=== PATIENT | male | born 1990 | race Caucasian/White ===

== ENCOUNTER 2017-05-15 10:47 | Emergency (ER) | payer OTHER ==
[~2017-05-15] VITALS: Ht 182.9 cm; Wt 89.0 kg
[2017-05-15 10:49] VITALS: Ht 182.9 cm; Wt 89.0 kg
[2017-05-15] MEDS ORDERED: morphine 4 MG/ML VIAL IV STA (10:54)
[2017-05-15] MEDS ORDERED: ONDANSETRON 4 MG INJ IV STA ×3 (10:54→13:45)
[2017-05-15] MEDS ORDERED: SOD CHLORIDE 0.9% 1,000 ML IV STA (10:54)
[2017-05-15 11:14] LABS: BASOPHIL # 0.1 10^3/ul (0.0-0.1); BASOPHILS % 0.9 % (0.0-2.0); EOSINOPHILS # 0.4 10^3/ul (0.0-0.5); EOSINOPHILS % 4.2 % (0.0-7.0); HEMATOCRIT 41.9 % (42.0-52.0); HEMOGLOBIN 15.2 g/dl (14.0-18.0); LYMPHOCYTES % 33.4 % (15.0-51.0); MEAN CORPUSCULAR HEMOGLOBIN 32.1 pg (29.0-33.0); MEAN CORPUSCULAR HGB CONC 36.3 g/dl (32.0-37.0); MEAN CORPUSCULAR VOLUME 88.6 fl (82.0-101.0); MEAN PLATELET VOLUME 9.5 fl (7.4-10.4); MONOCYTE # 0.7 10^3/ul (0.3-0.9); MONOCYTES % 7.3 % (0.0-11.0); NEUTROPHIL # 4.8 10^3/ul (1.6-7.5); PLATELET COUNT 299 10^3/UL (140-415); RED BLOOD COUNT 4.73 10^6/ul (4.70-6.10); RED CELL DISTRIBUTION WIDTH 12.3 % (11.5-14.5)
--- NOTE | 2017-05-15 11:19 | ERD ---
ER Documentation Chief Complaint Date/Time DATE: 05/15/17 TIME: 11:16 Chief Complaint AP TODAY HPI Patient is a 27-year-old male with past medical history of pancreatitis who presents to the emergency department for concerns of epigastric pain and vomiting which started earlier today. Patient states that he was at work when he started to have severe epigastric pain. Patient states that the pain is worse when lying down. Patient states he has had 3-4 episodes of clear watery vomit this morning. Patient denies any blood. Patient denies any fevers, chills. Patient also does admit to diarrhea. Patient states he did drink 2-3 beers with dinner last night. Patient denies any chest pain, shortness breath, left upper extremity pain or loss of consciousness. Patient states he was admitted to [facility] 2-3 months ago for pancreatitis. Patient states that he has had bouts of severe pain and seen GI specialists in the past for his abdominal pain. ROS All systems reviewed and are negative except as per history of present illness. Medications Home Meds Active Scripts Ondansetron (Ondansetron Odt) 4 Mg Tab.rapdis, 4 MG PO Q6H Y for NAUSEA AND/OR VOMITING, #15 TAB Prov:FEROZ VANCE-C 05/15/17 Hydrocodone/Acetaminophen (Drayton 5-325 Tablet) 1 Each Tablet, 1 TAB PO Q6H Y for PAIN, #7 TAB Prov:FEROZ VANCE-C 05/15/17 Ibuprofen* (Motrin*) 600 Mg Tab, 600 MG PO Q6, #20 TAB Prov:FEROZ VANCE PA-C 05/15/17 Ondansetron (Ondansetron Odt) 4 Mg Tab.rapdis, 4 MG PO Q6H Y for NAUSEA AND/OR VOMITING, #10 TAB Prov:FEROZ VANCE-C 05/15/17 PMhx/Soc Medical and Surgical Hx: pt denies Surgical Hx History of Surgery: No Anesthesia Reaction: No Hx Neurological Disorder: No Hx Respiratory Disorders: No Hx Cardiac Disorders: No Hx Psychiatric Problems: No Hx Miscellaneous Medical Probl: Yes (pancreatitis) Hx Alcohol Use: No Hx Substance Use: No Hx Tobacco Use: Yes Smoking Status: Current every day smoker Physical Exam Vitals Vital Signs Date Time Temp Pulse Resp B/P Pulse Ox O2 Delivery O2 Flow Rate FiO2 05/15/17 15:02 89 20 112/63 99 Room Air 05/15/17 14:11 97.6 56 20 148/89 98 Room Air 05/15/17 10:49 97.9 58 18 140/78 99 Physical Exam GENERAL: Ill-appearing male. Actively vomiting. HEAD: Normocephalic, atraumatic. EYES: Pupils are equally reactive bilaterally. EOMs grossly intact. No conjunctival erythema. ENT: Moist mucous membranes. No uvula deviation. No kissing tonsils. NECK: Supple. No meningismus. Normal range of motion of the neck. LUNG: Clear to auscultation bilaterally. No rhonchi, wheezing, rales or coarse breath sounds. HEART: Regular rate and rhythm. No murmurs, rubs or gallops. ABDOMEN: Soft and nondistended. + Tender to palpation in the epigastric region. Difficulty with laying supine. Positive bowel sounds in all four quadrants. No rebound tenderness, no guarding. (-) McBurney's point tenderness. No CVA tenderness. BACK: No midline tenderness. EXTREMITIES: Equal pulses bilaterally. No peripheral clubbing, cyanosis or edema. No unilateral leg swelling. NEUROLOGIC: Alert and oriented. Moving all four extremities without any difficulty. Normal speech. Steady gait. SKIN: Normal color. Warm and dry. No rashes or lesions. Result Diagram: 05/15/17 1107 05/15/17 1107 Results 24 hrs Laboratory Tests Test 05/15/17 11:07 White Blood Count 9.010^3/ul Red Blood Count 4.7310^6/ul Hemoglobin 15.2g/dl Hematocrit 41.9% Mean Corpuscular Volume 88.6fl Mean Corpuscular Hemoglobin 32.1pg Mean Corpuscular Hemoglobin Concent 36.3g/dl Red Cell Distribution Width 12.3% Platelet Count 53926^3/UL Mean Platelet Volume 9.5fl Neutrophils % 54.0% Lymphocytes % 33.4% Monocytes % 7.3% Eosinophils % 4.2% Basophils % 0.9% Nucleated Red Blood Cells % 0.0/100WBC Neutrophils # 4.810^3/ul Lymphocytes # 3.010^3/ul Monocytes # 0.710^3/ul Eosinophils # 0.410^3/ul Basophils # 0.110^3/ul Nucleated Red Blood Cells # 0.010^3/ul Sodium Level 147mmol/L Potassium Level 3.9mmol/L Chloride Level 103mmol/L Carbon Dioxide Level 23mmol/L Anion Gap 25 Blood Urea Nitrogen 11mg/dl Creatinine 0.66mg/dl Glucose Level 106mg/dl Calcium Level 10.1mg/dl Total Bilirubin 0.3mg/dl Direct Bilirubin 0.00mg/dl Indirect Bilirubin 0.3mg/dl Aspartate Amino Transf (AST/SGOT) 27IU/L Alanine Aminotransferase (ALT/SGPT) 67IU/L Alkaline Phosphatase 62IU/L Total Protein 9.2g/dl Albumin 5.2g/dl Globulin 4.00g/dl Albumin/Globulin Ratio 1.30 Lipase 129U/L Current Medications Medications (Trade) Dose Ordered Sig/Derek Route PRN Reason Start Time Stop Time Status Last Admin Dose Admin Sodium Chloride (NS) 1,000 ml @ 1,000 mls/hr Q1H STAT IV 05/15/17 10:54 05/15/17 11:53 DC 05/15/17 11:05 Morphine Sulfate (morphine) 4 mg ONCE STAT IV 05/15/17 10:54 05/15/17 10:56 DC 05/15/17 11:05 Ondansetron HCl (Zofran Inj) 4 mg ONCE STAT IV 05/15/17 10:54 05/15/17 10:56 DC 05/15/17 11:05 Ondansetron HCl (Zofran Inj) 4 mg ONCE STAT IV 05/15/17 11:19 05/15/17 11:21 DC 05/15/17 11:30 Hydromorphone HCl (Dilaudid) 1 mg ONCE STAT IV 05/15/17 11:33 05/15/17 11:34 DC 05/15/17 11:40 Famotidine (Pepcid Iv) 20 mg ONCE ONCE IV 05/15/17 13:00 05/15/17 13:01 DC 05/15/17 13:09 Miscellaneous Medication (Gi Cocktail (2)) 40 ml ONCE ONCE PO 05/15/17 13:30 05/15/17 13:31 DC 05/15/17 13:10 Hydromorphone HCl 1 mg 1 mg ONCE STAT IM 05/15/17 13:45 05/15/17 14:16 DC Sodium Chloride (NS) 1,000 ml @ 1,000 mls/hr Q1H ONCE IV 05/15/17 14:00 05/15/17 14:59 DC 05/15/17 13:57 Ondansetron HCl (Zofran Inj) 4 mg ONCE STAT IV 05/15/17 13:45 05/15/17 13:47 DC 05/15/17 13:55 Hydromorphone HCl (Dilaudid) 1 mg ONCE STAT IV 05/15/17 14:15 05/15/17 14:17 DC 05/15/17 14:23 Procedures/MDM ED COURSE: The patient was stable throughout ED course. I kept the patient and/or family informed of laboratory and diagnostic imaging results throughout the ED course. . DIAGNOSTIC IMAGING: Read by radiologist. Patient: CHALO HDZ : 1990 Age: 27 Sex: M MR #: [id number] DOS: 05/15/17 1054 Ordering MD: FEROZ VANCE PA-C Location: [facility] Room/Bed: PROCEDURE: CT Abdomen and Pelvis without contrast. CLINICAL INDICATION: Abdominal pain, nausea, vomiting. TECHNIQUE: CT scan of the abdomen and pelvis without contrast was performed on a multidetector high-resolution CT scanner. The patient was scanned without intravenous contrast. Coronal and sagittal reformatted images were obtained from the axial source images. Images were reviewed on a high-resolution PACS workstation. One or more of the following dose reduction techniques were used: Automated exposure control, adjustment of the mA and/or kV according to patient size, use of iterative reconstruction technique. The total exam CTDI equals 9.92 mGy and the total exam DLP equals 586.34 mGy-cm. COMPARISON: None. FINDINGS: CT abdomen: The lung bases are clear. The heart size is normal, without pericardial thickening or effusion. The liver is normal in size and density without focal mass or intrahepatic biliary dilatation. The spleen is normal in size and homogeneous in density. The stomach is grossly unremarkable. The pancreas as visualized is normal. No peripancreatic inflammatory changes are seen. The gallbladder and biliary tree are unremarkable and there is no evidence for biliary dilatation. The adrenal glands are symmetric and normal. The kidneys are symmetrically unremarkable as well. No renal calculus or obstructive uropathy or mass lesion is seen. The aorta is of normal caliber. There is no retroperitoneal lymphadenopathy. The radha hepatis region is clear. The small bowel and mesentery, as visualized , are unremarkable. CT pelvis: The small bowel loops situated within the pelvis are unremarkable. The pelvic organs are normal. The pelvic sidewalls and inguinal regions are clear. The sigmoid colon and rectum are unremarkable. The appendix is normal. No mass, lymphadenopathy, or free fluid is seen. No acute inflammation is seen. The surrounding osseous structures are unremarkable. No osteolytic or osteoblastic lesion is detected. IMPRESSION: No abdominal or pelvic acute inflammatory process, mass, or lymphadenopathy. RPTAT: JJ .Lamine Woodward MD, MD Date Time Electronically viewed and signed by .Lamine Woodward MD, MD on 05/15/2017 12:50 .A/ CC: FEROZ VANCE PA-C PROCEDURES: None. MEDICATIONS GIVEN: IV fluids, IV Zofran, IV Dilaudid, IV Pepcid, GI cocktail Patient tolerated medication well with no adverse reactions. Patient reported improvement in pain. MEDICAL DECISION MAKING: This is a 27-year-old male presents to the ED with epigastric pain and vomiting which started earlier today. Patient does admit to history of pancreatitis. Patient states he did drink 2-3 beers last night. Patient denied any marijuana use. Vital signs were reviewed. Patient is afebrile. Patient is not hypoxic. CBC showed no evidence of systemic infection or severe anemia. CMP showed no evidence of no significant electrolyte abnormalities, severe acidosis, alkalosis , renal failure, or liver disease. No elevations in bilirubin noted. Lipase showed no evidence of acute pancreatitis. CT abdomen and pelvis showed No abdominal or pelvic acute inflammatory process, mass, or lymphadenopathy. Of note, patient did develop diarrhea during the ED course. Patient reported have loose watery stools. I discussed the patient's presentation with my supervising physician, Dr. Hughes who advised to give patient additional medications. Upon re-examinations and numerous doses of pain medication and antiemetics, I did observe the patient resting comfortably without any distress or pain. Patient was no longer active vomiting and was no longer ill or toxic appearing. Patient's presentation did improve and he was stable for discharge. At this time, patient's presentation is most consistent with epigastric pain, vomiting and diarrhea. Given development of diarrhea, patient's symptoms may be viral in etiology. I have a much lower clinical concern for acute coronary syndrome, AAA, mesenteric ischemia, lower lobe pneumonia, DKA, bowel perforation , bowel obstruction, choledocholithiasis, ascending cholangitis, pancreatitis, splenic rupture, diverticulitis, nephrolithiasis, appendicitis, constipation, testicular torsion. Patient was unable to provide a urine sample, thus unable to rule out UTI or pyelonephritis however, low suspicion at this time. PRESCRIPTIONS: Zofran, Drayton, Ibuprofen DISCHARGE: At this time, patient is stable for discharge and outpatient management. Patient given a copy of all blood work and imaging studies obtained today. I have instructed the patient to follow-up with his/her primary care physician in 1-2 days. I have instructed the patient to promptly return to the ER at any time for any new or worsening symptoms including increased pain, nausea, vomiting, diarrhea, fever, weakness or LOC. The patient and/or family expressed understanding of and agreement with this plan. All questions were answered. Home care instructions were provided. Departure Diagnosis: Primary Impression: Vomiting and diarrhea Condition: Stable FEROZ VANCE PA-C May 15, 2017 11:19
[2017-05-15] MEDS ORDERED: HYDROmorphONE 1 MG/ML SYG IV STA ×2 (11:33→14:15)
[2017-05-15 11:35] LABS: ALBUMIN 5.2 g/dl (3.3-4.9); ALBUMIN/GLOBULIN RATIO 1.3; BILIRUBIN,INDIRECT 0.3 mg/dl (0-1.1); BILIRUBIN,TOTAL 0.3 mg/dl (0.2-1.3); CALCIUM 10.1 mg/dl (8.4-10.2); CREATININE 0.66 mg/dl (0.61-1.24); POTASSIUM 3.9 mmol/L (3.5-5.1); TOTAL PROTEIN 9.2 g/dl (6.1-8.1)
--- NOTE | 2017-05-15 12:50 | RADRPT ---
PROCEDURE: CT Abdomen and Pelvis without contrast. CLINICAL INDICATION: Abdominal pain, nausea, vomiting. TECHNIQUE: CT scan of the abdomen and pelvis without contrast was performed on a multidetector hig h-resolution CT scanner. The patient was scanned without intravenous contrast. Coronal and sagittal reformatted images were obtained from the axial source images. Images were reviewed on a high-resol [employer] PACS workstation. One or more of the following dose reduction techniques were used: Automated exposure control, adjustment of the mA and/or kV according to patient size, use of iterative recon struction technique. The total exam CTDI equals 9.92 mGy and the total exam DLP equals 586.34 mGy-c m. COMPARISON: None. FINDINGS: CT abdomen: The lung bases are clear. The heart size is normal, without pericardial thickening or effusion. The liver is normal in size and density without focal mass or intrahepatic biliary dilatation. The spleen is normal in size and homogeneous in density. The stomach is grossly unremarkable. The panc reas as visualized is normal. No peripancreatic inflammatory changes are seen. The gallbladder and b iliary tree are unremarkable and there is no evidence for biliary dilatation. The adrenal glands ar e symmetric and normal. The kidneys are symmetrically unremarkable as well. No renal calculus or o bstructive uropathy or mass lesion is seen. The aorta is of normal caliber. There is no retroperitoneal lymphadenopathy. The radha hepatis reg ion is clear. The small bowel and mesentery, as visualized, are unremarkable. CT pelvis: The small bowel loops situated within the pelvis are unremarkable. The pelvic organs are normal. T he pelvic sidewalls and inguinal regions are clear. The sigmoid colon and rectum are unremarkable. The appendix is normal. No mass, lymphadenopathy, or free fluid is seen. No acute inflammation is s een. The surrounding osseous structures are unremarkable. No osteolytic or osteoblastic lesion is detec mil. IMPRESSION: No abdominal or pelvic acute inflammatory process, mass, or lymphadenopathy. RPTAT: JJ .Lamine oWodward MD, MD Date Time Electronically viewed and signed by .Lamine Woodward MD, MD on 05/15/2017 12:50 .A/
[2017-05-15] MEDS ORDERED: FAMOTIDINE 20 MG INJ IV ONE (13:00)
[2017-05-15] MEDS ORDERED: LIDOCAINE/MYLANTA 40 ML BTL PO ONE (13:30)
[2017-05-15] MEDS ORDERED: HYDROmorphONE 1 MG/ML SYG IM STA (13:45)
[2017-05-15] MEDS ORDERED: SOD CHLORIDE 0.9% 1,000 ML IV ONE (14:00)
[2017-05-15 14:11] VITALS: TEMP 97.6
[2017-05-15] MEDS ORDERED: ONDA4TAB14 PO ×2 (14:33→16:14)
[2017-05-15] MEDS ORDERED: HYDR-906 PO (14:34)
[2017-05-15] MEDS ORDERED: IBUP-1542 PO (14:34)
[2017-05-15 15:02] VITALS: BP 112/63; PULSE 89; RESP 20
== END 2017-05-15 15:02 | disposition home or self-care (01) ==
LOC: FTE 10:47
DX: R11.10 Vomiting, unspecified (principal); R19.7 Diarrhea, unspecified; F17.210 Nicotine dependence, cigarettes, uncomplicated
CPT/HCPCS: 36415; 74176; 80053; 83690; 85025; 96374; 96375; 96376; J1170; J2270; J2405; J7030; Z7502; Z7610